=== PATIENT | female | born 1995 | race Caucasian/White ===

== ENCOUNTER 2021-09-18 22:53 | Emergency (ER) | payer OTHER ==
[~2021-09-18] VITALS: Ht 157.5 cm; Wt 54.5 kg
[2021-09-18 22:55] VITALS: BP 112/85
[2021-09-18] MEDS ORDERED: ALBU8HFA IH (23:58)
== END 2021-09-19 00:16 | disposition left against medical advice (07) ==
LOC: EDUNIT# 22:53 → EMS 23:00
DX: R06.02 Shortness of breath (principal); Z53.21 Procedure and treatment not carried out due to patient leaving prior to being seen by health care provider

== ENCOUNTER 2025-01-23 17:19 | Emergency (ER) | payer OTHER ==
[~2025-01-23] VITALS: Ht 157.5 cm; Wt 54.5 kg
[~2025-01-23 17:19] MED LIST: ALBU18HF12 IH
[2025-01-23] MEDS ORDERED: FLUT16H NASAL (17:30)
[2025-01-23 17:50] LABS: COVID AG,FIA SOURCE NASAL SWAB
[2025-01-23 18:06] LABS: PLATELET COUNT (AUTO) 307 K/uL (150-450); RED BLOOD CELL COUNT(AUTO) 4.38 MIL/uL (4.00-5.20); RED CELL DISTRIBUTION WIDTH 12.4 % (11.5-14.5); WHITE BLOOD COUNT (AUTO) 8.4 K/uL (4.5-11.0)
[2025-01-23 18:14] LABS: CALCIUM, TOTAL 8.4 mg/dL (8.8-10.5); CREATININE 0.61 mg/dL (0.60-1.30); GLOMERULAR FILTR. RATE CALC > 60 mL/min (>60); GLUCOSE,RANDOM 105 mg/dL (70-110); SODIUM SERUM 137 mmol/L (136-145); UREA NITROGEN, BLOOD 7 mg/dL (7-18)
[2025-01-23 18:16] LABS: INFLUENZA TYPE A NEGATIVE FOR TYPE A (NEGATIVE); INFLUENZA TYPE B NEGATIVE FOR TYPE B (NEGATIVE)
[2025-01-23 18:17] LABS: SARS-COV2 (COVID) ANTIGEN,FIA Negative (Negative)
[2025-01-23 18:20] LABS: ASPARTATE AMINOTRANSFERASE 14.0 U/L (15-37); TOTAL PROTEIN, SERUM 7.4 g/dL (6.4-8.2)
[2025-01-23] MEDS: KETOROLAC TROMETHAMINE 30 MG/ML VIAL IVP ONE (18:27)
[2025-01-23] MEDS: ONDANSETRON HCL 4 MG/2 ML VIAL IVP ONE (18:27)
[2025-01-23] MEDS: SODIUM CHLORIDE 0.9% 1,000 ML IV ONE (18:28)
[2025-01-23 18:54] LABS: APPEARANCE,URINE CLEAR (CLEAR); GLUCOSE, URINE (UA) NEGATIVE (NEGATIVE); LEUKOCYTE ESTERASE ,URINE NEGATIVE (NEGATIVE); NITRATE,URINE NEGATIVE (NEGATIVE); OCCULT BLOOD,URINE TRACE (NEGATIVE); SPECIFIC GRAVITIY, URINE 1.017 (1.003-1.030)
[2025-01-23] MEDS ORDERED: AMOX-457 PO (19:07)
[2025-01-23] MEDS ORDERED: ONDA-104 PO (19:07)
[2025-01-23 19:37] LABS: SQUAMOUS EPITHELIAL CELL,UR Few /LPF (None Seen)
[2025-01-23 20:57] VITALS: BP 117/67; PULSE 84; RESP 18; TEMP 98.205296; O2SAT 98
== END 2025-01-23 21:18 | disposition home or self-care (01) ==
LOC: EMS 17:21
DX: J32.9 Chronic sinusitis, unspecified (principal); R11.2 Nausea with vomiting, unspecified; J45.909 Unspecified asthma, uncomplicated; F12.90 Cannabis use, unspecified, uncomplicated; Z98.890 Other specified postprocedural states; Z79.899 Other long term (current) drug therapy; Z20.822 Contact with and (suspected) exposure to COVID-19
CPT/HCPCS: 99284; 96374; 96361; 96375; 87426; 80048; 80076; 81001; 83690; 84703; 85025; 87430; 87804; 36415; J1885; J2405; J7030